=== PATIENT | male | born 1985 | race American Indian/Alaskan Native ===

== ENCOUNTER 2022-04-15 12:59 | Emergency (ER) | payer SELFPAY ==
--- NOTE | 2022-04-15 17:22 | XRay Report ---
RIGHT RIBS 3 VIEWS INDICATION: Right rib pain, shortness of breath, fever. COMPARISON: None available. FINDINGS: RIBS: No acute, displaced fracture or other acute abnormality. CHEST: No acute findings. No pneumothorax. ADDITIONAL FINDINGS: No additional significant findings. IMPRESSION: 1. No acute abnormality. Signer Name: [place] Kear[place] MD Signed: 04/15/2022 5:18 PM Workstation Name: [id number]
[2022-04-15] MEDS ORDERED: LIDOCAINE VISCOUS 2% 15 ML ORAL LIQD PO ONE (21:10)
[2022-04-15] MEDS ORDERED: ONDANSETRON 4 MG ODT TAB PO ONE (21:10)
[2022-04-15] MEDS ORDERED: ALUM-MAG HYDROXIDE-SIMETHICONE 200-200-20MG/5ML ORAL LIQD 30 ML PO ONE (21:10)
[2022-04-15 21:50] LABS: Basophils # (Auto) 0.1 K/mm3 (0.0-0.1); Basophils % (Auto) 0.7 % (0.0-1.8); Eosinophils # (Auto) 0.1 K/mm3 (0.0-0.4); Eosinophils % (Auto) 1.1 % (0.0-4.3); Hematocrit 38.3 % (35.5-45.6); Hemoglobin 12.6 gm/dl (11.8-15.2); Lymphocytes # (Auto) 1.9 K/mm3 (1.2-5.4); Lymphocytes % (Auto) 27.8 % (13.4-35.0); Mean Corpuscular HGB Conc 33 % (32-34); Mean Corpuscular Volume 89 fl (84-94); Monocytes # (Auto) 0.6 K/mm3 (0.0-0.8); Monocytes % (Auto) 9.2 % (0.0-7.3); Platelet Count 395 K/mm3 (140-440); Red Blood Count 4.31 M/mm3 (3.65-5.03); Red Cell Distribution Width 15.6 % (13.2-15.2)
[2022-04-15 21:51] LABS: Alanine Aminotransferase 18 units/L (7-56); BUN/Creatinine Ratio 7; Blood Urea Nitrogen 7 mg/dL (9-20); Calcium 9.7 mg/dL (8.4-10.2); Hemolysis Index 1
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
[2022-04-16 00:12] VITALS: BP 112/69
== END 2022-04-16 00:40 | disposition home or self-care (01) ==
LOC: ED 12:59
DX: K21.9 Gastro-esophageal reflux disease without esophagitis (principal); R10.13 Epigastric pain; F17.200 Nicotine dependence, unspecified, uncomplicated; F10.20 Alcohol dependence, uncomplicated
CPT/HCPCS: 36415; 80053; 83690; 85025; 99283; J3490; Q0162